=== PATIENT | male | born 1995 | race Caucasian/White ===

== ENCOUNTER 2020-08-15 22:41 | Emergency (ER) | payer OTHER ==
[2020-08-15 23:12] VITALS: BP 148/82; PULSE 100; TEMP 98.5; BMI 25.1
[2020-08-16] MEDS ORDERED: IBUPROFEN 400 MG TABLET (FP) PO ONE ×2 (00:26→00:41)
== END 2020-08-16 00:54 | disposition home or self-care (01) ==
LOC: JER 22:41
DX: M25.511 Pain in right shoulder (principal)
CPT/HCPCS: 99283-25